=== PATIENT | female | born 1960 | race Caucasian/White ===

== ENCOUNTER 2019-02-06 14:55 | Emergency (ER) | payer BC ==
--- NOTE | 2019-02-06 15:19 | ED ---
Head Injury - HPI Summary HPI Summary: A 58 y/o female brought in by [facility] presents to [facility] with a chief complaint of right forehead and elbow pain post fall after slipping on the rocks at the fall. At triage she rated her pain as a 5/10 in severity. Per daughter, who is a nurse, the patient was not responding but then after a few seconds the patient was alert and oriented x3. The patient denies any neck pain or vision problems, but states that her right elbow pain is worsened with movement. The patient has a Hx of HLD, SHx for parathyroid, and a FHx of cardiac disease. She denies smoking or drug use but reports using EtOH socially. - History Of Current Complaint Chief Complaint: EDHeadInjury Stated Complaint: FALL Time Seen by Provider: 02/06/19 15:11 Hx Obtained From: Patient, Family/District Home Economics Agent, EMS Mechanism Of Injury: Fall From A Standing Position Onset/Duration: Started Minutes Ago Onset of Pain: Immediate, Minutes, Post Accident, Prior to Arrival Severity Currently: Moderate Severity Initially: Moderate Pain Intensity: 5 Pain Scale Used: 0-10 Numeric - Allergies/Home Medications Allergies/Adverse Reactions: Allergies Allergy/AdvReac Type Severity Reaction Status Date / Time bupropion [From Wellbutrin] Allergy Vomiting Verified 02/06/19 15:04 propoxyphene Allergy Vomiting Verified 02/06/19 15:04 [From Darvocet-N] Home Medications: Home Medications Pravastatin (NF) [Pravachol (NF)] 40 mg PO 1700 02/06/19 [History Confirmed ] PMH/Surg Hx/FS Hx/Imm Hx Endocrine/Hematology History: Denies: Hx Diabetes Cardiovascular History: Reports: Hx Hypercholesterolemia Denies: Hx Hypertension - Surgical History Surgery Procedure, Year, and Place: for parathyroid Infectious Disease History: No Infectious Disease History: Denies: Traveled Outside the [place] in Last 30 Days - Family History Known Family History: Positive: Cardiac Disease Negative: Hypertension, Diabetes - Social History Alcohol Use: socially Hx Substance Use: No Substance Use Type: Reports: None Hx Tobacco Use: No Smoking Status (MU): Never Smoked Tobacco Review of Systems Negative: Fever Positive: Other - right elbow pain Neurological: Other - positive: head injury to right forehead post mechanical fall, LOC is questionable, per daughter patient was unresponsive for a few seconds All Other Systems Reviewed And Are Negative: Yes Physical Exam - Summary Physical Exam Summary: VITAL SIGNS: Reviewed. GENERAL: Patient is a well-developed and nourished FEMALE who is lying comfortable in the stretcher. Patient is not in any acute respiratory distress. HEAD AND FACE: No signs of trauma. No ecchymosis, hematomas or skull depressions. No sinus tenderness. EYES: PERRLA, EOMI x 2, No injected conjunctiva, no nystagmus. EARS: Hearing grossly intact. Ear canals and tympanic membranes are within normal limits. MOUTH: Oropharynx within normal limits. NECK: Supple, trachea is midline, no adenopathy, no JVD, no carotid bruit, no c- spine tenderness, neck with full ROM. CHEST: Symmetric, no tenderness at palpation. LUNGS: Clear to auscultation bilaterally. No wheezing or crackles. CVS: Regular rate and rhythm, S1 and S2 present, no murmurs or gallops appreciated. ABDOMEN: Soft, non-tender. No signs of distention. No rebound, no guarding, and no masses palpated. Bowel sounds are normal. EXTREMITIES: decreased ROM right elbow secondary to pain, no ecchymosis or deformity, good pulses and good capillary refill. NEURO: Alert and oriented x 3. No acute neurological deficits. Speech is normal and follows commands. SKIN: Dry and warm. Triage Information Reviewed: Yes Vital Signs On Initial Exam: Initial Vitals Temp Pulse Resp BP Pulse Ox 99.2 F 86 18 166/70 97 02/06/19 15:03 02/06/19 15:03 02/06/19 15:03 02/06/19 15:03 02/06/19 15:03 Vital Signs Reviewed: Yes - [place]alante Coma Scale Best Eye Response: 4 - Spontaneous Best Motor Response: 6 - Obeys Commands Best Verbal Response: 5 - Oriented Coma Scale Total: 15 Diagnostics - Vital Signs Vital Signs Temp Pulse Resp BP Pulse Ox 02/06/19 15:03 99.2 F 86 18 166/70 97 - Laboratory Lab Statement: Any lab studies that have been ordered have been reviewed, and results considered in the medical decision making process. - Radiology elbow x-ray Radiology Interpretation Completed By: Radiologist Summary of Radiographic Findings: JOINT EFFUSION WITH PROBABLE NONDISPLACED FRACTURE OF THE RADIAL HEAD. ED physician has reviewed this imaging report. forearm x-ray Radiology Interpretation Completed By: Radiologist Summary of Radiographic Findings: JOINT EFFUSION WITH PROBABLE NONDISPLACED FRACTURE OF THE RADIAL HEAD. ED physician has reviewed this imaging report. - CT Brain CT Interpretation Completed By: Radiologist Summary of CT Findings: NO ACUTE INTRACRANIAL PATHOLOGY. ED physician has reviewed this imaging report. - EKG 15:08 Cardiac Rate: NL - 73 bpm EKG Rhythm: Sinus Rhythm Summary of EKG Findings: NSR 73 bpm, no ST elevations, similar to previous EKG done 01/26/19 Re-Evaluation - Re-Evaluation First Eval Re-Evaluation Time: 16:34 Head Injury Course/Dx Assessment/Plan: A 58 y/o female brought in by [facility] ambulance presents to [facility] with a chief complaint of right forehead and elbow pain post fall after slipping on the rocks at the fall. At triage she rated her pain as a 5/10 in severity. Per daughter, who is a nurse, the patient was not responding but then after a few seconds the patient was alert and oriented x3. The patient denies any neck pain or vision problems, but states that her right elbow pain is worsened with movement. The patient has a Hx of HLD, SHx for parathyroid, and a FHx of cardiac disease. She denies smoking or drug use but reports using EtOH socially. Elbow x ray IMPRESSION: JOINT EFFUSION WITH PROBABLE NONDISPLACED FRACTURE OF THE RADIAL HEAD. Head CT IMPRESSION: NO ACUTE INTRACRANIAL PATHOLOGY. In the ED course the patient was placed in a posterior splint. Patient was given a shoulder sling and she is discharged home with follow-up with orthopedics. The patient is hemodynamically stable alert and oriented 3. - Diagnoses Provider Diagnoses: Radial head fracture Discharge - Sign-Out/Discharge Documenting (check all that apply): Patient Departure - DC Patient Received Moderate/Deep Sedation with Procedure: No - Discharge Plan Condition: Stable Disposition: HOME Patient Education Materials: Elbow Fracture (ED) Referrals: Danna Peterson MD [Primary Care Provider] - () Freddie Rocha MD [Medical Doctor] - Additional Instructions: FOLLOW UP WITH ORTHOPEDICS AND YOUR PRIMARY CARE PROVIDER WITHIN 2-3 DAYS. RETURN TO THE ED FOR ANY WORSENING OR NEW SYMPTOMS. - Billing Disposition and Condition Condition: STABLE Disposition: Home - Attestation Statements Document Initiated by Scribe: Yes Documenting Scribe: Sidney Norman Provider For Whom Scribe is Documenting (Include Credential): Rich Quan MD Scribe Attestation: I, Sidney Norman, scribed for Rich Quan MD on 02/07/19 at 2025. Scribe Documentation Reviewed: Yes Provider Attestation: The documentation as recorded by the Sidney harper accurately reflects the service I personally performed and the decisions made by me, Rich Quan MD Status of Scribe Document: Viewed
[2019-02-06 17:00] VITALS: BP 116/74
== END 2019-02-06 17:00 | disposition home or self-care (01) ==
LOC: ED 14:55
DX: S52.121A Displaced fracture of head of right radius, initial encounter for closed fracture (principal); W01.0XXA Fall on same level from slipping, tripping and stumbling without subsequent striking against object, initial encounter; Y92.89 Other specified places as the place of occurrence of the external cause; E78.00 Pure hypercholesterolemia, unspecified; Z88.5 Allergy status to narcotic agent; Z88.8 Allergy status to other drugs, medicaments and biological substances; Z79.899 Other long term (current) drug therapy
CPT/HCPCS: 70450; 99282